=== PATIENT | female | born 1990 | race Caucasian/White ===

== ENCOUNTER → 2016-12-10 | Outpatient (REF) | LOC: WSOH 17:15 | DX: Z02.89 Encounter for other administrative examinations (principal) ==

== ENCOUNTER → 2020-02-22 | Outpatient (CLI) | payer OTHER | LOC: COL.LAB 16:45 | DX: U07.1 COVID-19 (principal) ==

== ENCOUNTER 2023-04-01 08:30 | Inpatient (IN) | payer OTHER ==
[2023-04-01] VITALS (50 sets, daily range): BP systolic 111–165; BP diastolic 56–88; PULSE 62–101; TEMP 98.2–98.9
[~2023-04-01] VITALS: Ht 157.5 cm; Wt 79.1 kg
[2023-04-01] MEDS ORDERED: PRENATAL TABLET PO (09:39)
[2023-04-01] MEDS ORDERED: ZOVIRAX400 MG PO (09:39)
--- NOTE | 2023-04-01 12:00 | NUR ---
4123A3H0 at 39.1 ambulator to unit for IOL. To LDR4 with spouse. Changes into clean gown. Reports normal movement. Denies any LOF or VB. Reports regular contractions last several days, but none currently. EFM applied and tracing well. VS obtained. Assessment completed by Geri Cohen RN. 1220Consent forms signed. IV to left wrist and routine labs obtained. LR infusing. 1235Pitocin started at 2mu per orders. PCN G initiated. Plan of care reviewed; pt verbalizes understanding. Call light within reach.
[2023-04-01 12:40] LABS: BASO % 0.3 % (0.0-2.0); EOS # 0.1 K/mm3 (0.0-0.7); EOS % 0.9 % (0.0-4.0); GRAN # 6.7 K/mm3 (1.4-6.5); GRAN % 76.7 % (42.2-75.2); HEMOGLOBIN 10.8 g/dl (12.5-16.0); LYMPH # 1.2 K/mm3 (1.2-3.4); MEAN CELL VOLUME 94 fl (80.0-100.0); MEAN CORPUSCULAR HEMOGLOBIN 33 pg (27-31); MEAN CORPUSCULAR HGB CONC 35 g/dl (33.0-37.0); MEAN PLATELET VOLUME 10.1 fl (7.4-10.4); MONO # 0.6 K/mm3 (0.1-0.6); MONO % 6.9 % (1.7-9.3); PLATELET COUNT 115 K/mm3 (130-400); RED BLOOD COUNT 3.32 M/mm3 (4.10-5.30); REDCELL DISTRIBUTION WIDTH-CV 13.5 % (11.5-14.5)
[2023-04-01 12:47] LABS: HEMATOCRIT 31.2 % (37.0-47.0)
--- NOTE | 2023-04-01 13:26 | NUR ---
1326Dr. Sahu at bedside and reviews plan of care with pt and spouse. AROM by Dr. Sahu for small amount of clear amniotic fluid. Isadora care provided. Resting with call light within reach.
[2023-04-01 13:53] LABS: COLLECTION METHOD CLEAN CATCH
[2023-04-01 14:10] LABS: URINE APPEARANCE Cloudy (CLEAR/HAZY); URINE COLOR Yellow (YELLOW); URINE GLUCOSE Negative (NEGATIVE); URINE KETONE Negative (NEGATIVE); URINE NITRATE Negative (NEGATIVE); URINE PROTEIN(semi-quant) 1+ (NEGATIVE); URINE UROBILINOGEN 0.2 E.U/dL (0.2-1.0)
[2023-04-01 14:11] LABS: MUCOUS Present (NOT PRESENT); URINE BACTERIA Occasional /hpf (NONE SEEN); URINE BLOOD Negative (NEGATIVE); URINE RBC None Seen /hpf (0-2); URINE WBC 20-50 /hpf (0-2)
[2023-04-01 14:14] LABS: ALBUMIN 2.4 gm/dL (3.5-5.0); BILIRUBIN,TOTAL 0.7 mg/dL (0.2-1.2); CALCIUM 8.4 mg/dL (8.4-10.2); CREATININE, serum 0.82 mg/dL (0.57-1.11); POTASSIUM 3.7 mmol/L (3.5-4.5); TOTAL PROTEIN 6.2 gm/dL (6.2-8.1)
--- NOTE | 2023-04-01 15:00 | NUR ---
1500Pt requesting epidural. Lana Hackett SPECIAL MACHINE OPERATOR notified. Ctx noted very 1-2min and palpate moderate to strong. Pitocin to 6mu. 1505Pt to edge of bed for epidural placement. FHr tracing intermittently due to maternal position. RN cont. at bedside. 1510Epidural placed and test dose at this time by Lana Hackett CRNA. See anesthesia record. 1513Pt wedge left. EFM adjusted and tracing well. Plan of care and safety precautions reviewed. Pt resting with call light within reach.
--- NOTE | 2023-04-01 16:30 | NUR ---
1630DrJamila Sahu at nurses station and updated on pt. Notified pt with epidural and comfortable. Highest bp just prior to CARMINE placement 165/88. Current BPs 130s/70's. Ctx every 1min approx 1.5hour ago and pitocin decreased to 6mu at that time. Current pitocin at 8mu. Dr. Sahu reviews strips. 1637DrJamila Sahu at bedside. SVE . IUPC placed. Pt immediately reports sharp, midline, upper abd pain. Dr. Sahu remains at bedside assessing pt. FHR baseline continues 125bmp, spontaneous accels, no decels. See flowsheet for pt vs. 1650IUPC removed per pt request and Dr. Sahu' orders. Pt reports some relief, but cont. to report mild, upper abdominal, midline "sharp" pain. Dr. Sahu remains at bedside. Rn offers to reposition pt for pain relief. Attempted left lateral with right leg stirrup. Pt unable to tolerate position. Back to wedge left. Epidural site noted to have bright red drainage. 1653Pt requesting pitocin be turned off. Pitocin off per pt request and Dr. Sahu orders. Dr. Sahu remains on unit. Lana Hackett TALEND ETL DEVELOPER notified of epidural site draiange, and pt condition. Lana Hackett TALEND ETL DEVELOPER states she is en route to hospital to evaluate pt. Pt states, "I'm just feeling pretty anxious right now. I think I just need a moment." RN instructs pt to call with any questions or needs. RN to nurses desk. 1705C. Lew TALEND ETL DEVELOPER at bedside to evaluate pt and redress site. See anesthesia record. Pt states mild pain continues, but she feels less anxious now. Denies questions or needs at this time. Resting with call light within reach.
[2023-04-02] VITALS (14 sets, daily range): BP systolic 107–147; BP diastolic 56–86; PULSE 75–114; TEMP 97.8–99.2
--- NOTE | 2023-04-02 00:16 | NUR ---
2235 - SVE complete/+2. Reviewed pushing positions and techniques with patient, verbalized understanding. Cavanaugh catheter removed, 500 mL urine out. 2240 - Pt positioned into footplates, initial push at this time. 2250 - Pt pushing well with contractions. Variable decelerations noted during pushes with spontaneous return to baseline. RN remains at bedside. 2330 - Pt continues to push well with contractions. Recurrent variable decelerations noted during pushes with spontaneous return to baseline. This RN remains at bedside. 0000 - Recurrent variable decelerations noted during pushes with spontaneous return to baseline. Small crown with pushes. Dr. Sahu notified to come to hospital for delivery. Room set up for delivery. Nursery nurse updated. 0010 - Recurrent variable decelerations noted during pushes with spontaneous return to baseline. Dr. Sahu in room and gowned and gloved at perineum. 0016 - Spontaneous delivery of viable infant girl. placed on mothers abdomen, care of assumed to Nursery RN Michelle Frye. 1 minute delayed cord clamping, cord then clamped x2 by Dr. Sahu and cut by FOB. Cord blood obtained. Pitocin off. 0026 - Spontaneous delivery of intact placenta. Pitocin restarted at 333 mu/min. Moderate amount of bleeding with fundal massage from Dr. Sahu. Periurethral and left labial laceration repaired by Dr. Sahu. 0030 - Moderate amount of bleeding. Verbal orders for 600 mcg rectal cytotec to be given by Dr. Sahu along with fundal massage. Straight cath by Dr. Sahu at this time, about 100 mL of urine out. 0040 - Scant amount of bleeding with fundal massage and fundus firm per Dr. Sahu. Pericare provided. Ice pack and new chux beneath patient. Pt repositioned in bed for comfort. recovery started. See physician delivery note.
--- NOTE | 2023-04-02 02:55 | NUR ---
Pt able to lift and hold each leg off of bed for 5 seconds. Pt positioned to sitting on edge of bed and tolerated well. Nataliya Gotti used to transfer to bathroom. Pt unable to void at this. Pericare explained and provided. Clean gown on. Mesh panties and peripad applied. Pt to wheelchair and transferred to room 214 with belongings.
[2023-04-02 07:15] LABS: BASO # 0.1 K/mm3 (0.0-0.2); BASO % 0.4 % (0.0-2.0); EOS % 0.2 % (0.0-4.0); GRAN # 9.4 K/mm3 (1.4-6.5); HEMATOCRIT 22.6 % (37.0-47.0); HEMOGLOBIN 7.8 g/dl (12.5-16.0); LYMPH % 15.6 % (20.0-51.0); MEAN CELL VOLUME 92 fl (80.0-100.0); MEAN CORPUSCULAR HEMOGLOBIN 32 pg (27-31); MEAN CORPUSCULAR HGB CONC 35 g/dl (33.0-37.0); MEAN PLATELET VOLUME 10.4 fl (7.4-10.4); MONO % 7.8 % (1.7-9.3); PLATELET COUNT 50 K/mm3 (130-400); RED BLOOD COUNT 2.45 M/mm3 (4.10-5.30); REDCELL DISTRIBUTION WIDTH-CV 14.1 % (11.5-14.5)
[2023-04-02 07:27] LABS: ALBUMIN 1.9 gm/dL (3.5-5.0); BILIRUBIN,TOTAL 0.9 mg/dL (0.2-1.2); CALCIUM 7.7 mg/dL (8.4-10.2); CREATININE, serum 0.81 mg/dL (0.57-1.11); POTASSIUM 3.8 mmol/L (3.5-4.5); TOTAL PROTEIN 4.7 gm/dL (6.2-8.1)
--- NOTE | 2023-04-02 08:47 | NUR ---
Initial visit attempt; Patient resting, Database Tester left card offering congratulations and God's blessings for the of their daughter and information regarding the availability of [facility] at our hospital.
--- NOTE | 2023-04-02 12:48 | NUR ---
0720 LAB NOTIFIED RN OF MORNING LAB VALUES. DR. ANGUIANO NOTIFIED AT THIS TIME. ANESTHESIA PROVIDER REQUESTS PT'S EPIDURAL TO REMAIN IN PLACE UNTIL PLATELETS AT [address] ANGUIANO TO ORDER REPEAT LABS IN THE AM. 0800 PT AWAKE, ALERT. VISIBLE FACE AND FEET SWELLING. PT DENIES HEADACHES, BLURRED VISION. VSS. PAIN RATED 3/10.
--- NOTE | 2023-04-02 20:50 | NUR ---
2049-EPIDURAL STILL IN PLACE PER PRE KINDERGARTEN TEACHER ORDER DUE TO PLATELET COUNT BEING LOW. SITE IS COVERED AND CDI.
[2023-04-03 05:45] VITALS: BP 118/75; PULSE 82
[2023-04-03 07:00] VITALS: BP 138/82
--- NOTE | 2023-04-03 07:00 | NUR ---
PT CALLED OUT FOR HELP. THIS RN AND CHARGE AT BEDSIDE. PT REPORTS BLURRED VISION IN CENTER OF EYES. NO HEADACHE. BP STABLE. REPORTS THIS HAPPENED AT 8WKS ALSO AND THOUGHT DUE TO LACK OF SLEEP. BABY TO NURSERY AT THIS TIME. PT GOING TO REST.
[2023-04-03 07:10] LABS: MEAN CELL VOLUME 94 fl (80.0-100.0); MEAN CORPUSCULAR HGB CONC 34 g/dl (33.0-37.0); MEAN PLATELET VOLUME 9.9 fl (7.4-10.4); PLATELET COUNT 98 K/mm3 (130-400); RED BLOOD COUNT 2.35 M/mm3 (4.10-5.30); REDCELL DISTRIBUTION WIDTH-CV 14.5 % (11.5-14.5)
[2023-04-03 07:11] LABS: HEMATOCRIT 22.1 % (37.0-47.0); HEMOGLOBIN 7.4 g/dl (12.5-16.0); MEAN CORPUSCULAR HEMOGLOBIN 31 pg (27-31)
[2023-04-03 07:25] LABS: BILIRUBIN,TOTAL 0.3 mg/dL (0.2-1.2); CALCIUM 7.7 mg/dL (8.4-10.2); CREATININE, serum 0.64 mg/dL (0.57-1.11); POTASSIUM 4.3 mmol/L (3.5-4.5); TOTAL PROTEIN 4.8 gm/dL (6.2-8.1)
[2023-04-03 08:00] LABS: BAND 10 % (0-10); EOSINOPHIL 2 % (0-4); LYMPHOCYTE 24 % (20.0-51.0); METAMYELOCYTE 2 % (0-0); NEUTROPHILS 61 % (42.0-75.2); NUCLEATED RED BLOOD CELL 1 (0-6); PLATELET ESTIMATE DECREASED (NORMAL)
[2023-04-03] MEDS ORDERED: IBU600 MG PO (08:50)
--- NOTE | 2023-04-03 11:00 | NUR ---
ESCORTED PT OFF UNIT WITH SPOUSE. PT COMFORTABLE WALKING TO CAR. NO PAIN. STABLE.
== END 2023-04-03 11:00 | disposition home or self-care (01) | DRG 806 ==
LOC: OB 08:30 → LDR 11:58 → OB 11:58
PROVIDERS: ADMIT Obstetrics & Gynecology
PROC: 10E0XZZ Delivery of Products of Conception, External Approach (ICD-10-PCS; principal; 2023-04-02)
PROC: 0UQMXZZ Repair Vulva, External Approach (ICD-10-PCS; 2023-04-02)
PROC: 3E033VJ Introduction of Other Hormone into Peripheral Vein, Percutaneous Approach (ICD-10-PCS; 2023-04-02)
DX: O43.123 Velamentous insertion of umbilical cord, third trimester (principal); O44.43 Low lying placenta NOS or without hemorrhage, third trimester; Z37.0 Single live birth; O99.824 Streptococcus B carrier state complicating childbirth; Z3A.39 39 weeks gestation of pregnancy; Z86.16 Personal history of COVID-19; O43.193 Other malformation of placenta, third trimester; O14.14 Severe pre-eclampsia complicating childbirth; O71.82 Other specified trauma to perineum and vulva; O70.0 First degree perineal laceration during delivery; O75.89 Other specified complications of labor and delivery; G43.809 Other migraine, not intractable, without status migrainosus; O99.892 Other specified diseases and conditions complicating childbirth; Z23 Encounter for immunization
CPT/HCPCS: J2405; J2540; J2590; J2791; J2795; J7120